=== PATIENT | male | born 1960 | race Caucasian/White ===

== ENCOUNTER → 2017-10-31 16:05 | Outpatient (CLI) | payer OTHER, SELFPAY ==
[2017-10-31 17:32] LABS: Estradiol 29.6 pg/mL
== END ==
PROVIDERS: Family Provider Preventive Medicine Occupational Medicine; PCP Preventive Medicine Occupational Medicine; Visit Provider Specialist
DX: E29.1 Testicular hypofunction (principal)
CPT/HCPCS: 36415; 82670; 84403

== ENCOUNTER → 2018-03-01 11:31 | Outpatient (CLI) | payer OTHER, SELFPAY ==
[2018-03-01 12:02] LABS: Hematocrit 46.3 % (40-54); Hemoglobin 16.3 g/dl (13.0-16.5); Mean Corp Hgb Conc 35.2 g/gl (32-36); Mean Platelet Vol. 10.4 fl (6.2-12.0); Platelet Count 167 K/mm3 (150-450); RBC Distribution Width SD 45.2 fl (35.1-43.9); Red Blood Count 5.26 M/mm3 (4.6-6.2); White Blood Count 6.4 K/mm3 (4.4-11.0)
[2018-03-01 12:04] LABS: Scan Indicated on CBC? Y/N NO
[2018-03-01 15:04] LABS: ALB/GLOB Ratio 1.2 RATIO (0.9-2.4); AST(SGOT) 38 U/L (15-37); Alanine Aminotransfer ALT/SGPT 54 U/L (16-61); Albumin, Serum 4.2 g/dL (3.2-5.0); Alkaline Phosphatase 55 U/L (45-117); Anion Gap 9 (5-15); BUN 16 mg/dL (7-18); BUN/Creat Ratio 13.9 RATIO (10-20); Calcium,Total 8.8 mg/dL (8.5-10.1); Chloride 105 mmol/L (98-107); Cholesterol 143 mg/dL (200); Creatinine, Serum 1.15 mg/dL (0.70-1.30); EST Glomerular Filtration Rate 69 mL/min (>60); Est Glom Filt Rate - Afr Amer 84 mL/min (>60); Globulin 3.6 g/dL (2.2-4.2); Glucose 84 mg/dL (74-106); High Density Lipoprotein 30 mg/dL; Potassium 3.9 mmol/L (3.5-5.1); Protein, Total 7.8 g/dL (6.4-8.2); Sodium Level 141 mmol/L (136-145); Triglycerides 103 mg/dL; Very Low Density Lipoprotein 21 mg/dL (5-40)
== END ==
PROVIDERS: Family Provider Preventive Medicine Occupational Medicine; PCP Preventive Medicine Occupational Medicine; Visit Provider Preventive Medicine Occupational Medicine
DX: Z00.00 Encounter for general adult medical examination without abnormal findings (principal)
CPT/HCPCS: 36415; 80053; 80061; 85027

== ENCOUNTER → 2018-11-22 14:47 | Outpatient (CLI) | payer OTHER, SELFPAY ==
[2016-08-04 11:54] VITALS: BMI 35.6
== END ==
PROVIDERS: Family Provider Preventive Medicine Occupational Medicine; PCP Preventive Medicine Occupational Medicine; Referring Provider Preventive Medicine Occupational Medicine; Visit Provider Preventive Medicine Occupational Medicine
DX: L01.00 Impetigo, unspecified (principal)
CPT/HCPCS: 87070; 87205

== ENCOUNTER → 2019-07-04 12:53 | Outpatient (CLI) | payer OTHER, SELFPAY ==
[2016-08-04 11:54] VITALS: BMI 35.6
[2019-07-04 14:40] LABS: Hemoglobin A1c 5.5 % (4.2-6.3)
[2019-07-04 14:47] LABS: ALB/GLOB Ratio 1.2 RATIO (0.9-2.4); AST(SGOT) 86 U/L (15-37); Alanine Aminotransfer ALT/SGPT 99 U/L (16-61); Albumin, Serum 4.4 g/dL (3.2-5.0); Alkaline Phosphatase 56 U/L (45-117); Anion Gap 5 (5-15); BUN 17 mg/dL (7-18); BUN/Creat Ratio 14.3 RATIO (10-20); Chloride 106 mmol/L (98-107); Cholesterol 189 mg/dL (200); Creatinine, Serum 1.19 mg/dL (0.70-1.30); EST Glomerular Filtration Rate 66 mL/min (>60); Est Glom Filt Rate - Afr Amer 80 mL/min (>60); Globulin 3.6 g/dL (2.2-4.2); Glucose 99 mg/dL (74-106); High Density Lipoprotein 31 mg/dL; PSA,Total - Annual Screen 0.71 ng/mL (0.00-4.00); Sodium Level 139 mmol/L (136-145); Thyroid Stim Hormone (TSH) 2.23 uIU/mL (0.358-3.74); Triglycerides 194 mg/dL; Very Low Density Lipoprotein 39 mg/dL (5-40)
[2019-07-09 14:08] LABS: Testosterone, Free 9.41 ng/dL (5.00-21.00)
[2019-07-09 16:20] LABS: Testosterone, Total 362 ng/dL (264-916)
== END ==
PROVIDERS: Family Provider Preventive Medicine Occupational Medicine; PCP Preventive Medicine Occupational Medicine; Referring Provider Nurse Practitioner Family; Visit Provider Nurse Practitioner Family
DX: R68.82 Decreased libido (principal); Z12.5 Encounter for screening for malignant neoplasm of prostate; R73.9 Hyperglycemia, unspecified; E78.5 Hyperlipidemia, unspecified
CPT/HCPCS: 36415; 80053; 80061; 83036; 84153; 84402; 84403; 84443; G0103

== ENCOUNTER → 2021-07-27 13:56 | Outpatient (CLI) | payer OTHER, SELFPAY ==
--- NOTE | 2021-07-27 13:59 | ECHOD_ITS ---
Reason For Study: ABNL CALCIUM SCORE TEST Procedure This was a 2D Doppler, Color Flow transthoracic echocardiogram. The study was technically difficult. Exam performed in department. Left Ventricle Normal LV size. Left ventricular systolic function is normal. The estimated ejection fraction is 65 %. No evidence for diastolic dysfunction. No regional wall motion abnormalities noted. Right Ventricle Normal RV size. Normal systolic function. Atria The left atrium is mildly enlarged. Normal right atrium. No doppler evidence for ASD. Mitral Valve There is no mitral annular calcification. Normal mitral valve. Trivial mitral valve insufficiency. Tricuspid Valve Normal tricuspid valve. Trivial tricuspid valve insufficiency. Unable to estimate RV systolic pressure/pulmonary artery pressure due to technically difficult study. Aortic Valve Trisinus/trileaflet aortic valve. Mild focal aortic valve calcification. Pulmonic Valve The pulmonic valve is not well visualized. Trivial pulmonic valve insufficiency. Great Vessels Normal sized aortic root. Pericardium/Pleural No pericardial effusion. MMode/2D Measurements & Calculations LVIDd: 4.7 cm IVSd: 1.0 cm Ao root diam: 3.7 cm LVIDs: 3.6 cm LVPWd: 0.95 cm RVDd: 3.6 cm FS: 23.5 % LAV(MOD-bp): 69.1 ml LA A4 area: 21.0 cm2 LA dimension(2D): 4.5 cm LAV(MOD-bp) Indexed: 29.2 ml/m2 LAV(MOD-sp2): 67.0 ml LAV(MOD-sp4): 58.9 ml RA A4 area: 19.8 cm2 Time Measurements MV dec time: 0.22 sec Doppler Measurements & Calculations MV E max jesus: 70.6 cm/sec Lat Peak E' Jesus: 10.6 cm/sec Med Peak E' Jesus: 9.9 cm/sec MV A max jesus: 83.3 cm/sec E/E' lat: 6.7 E/E' med: 7.2 MV E/A: 0.85 Ao V2 max: 160.2 cm/sec LV V1 max: 119.6 cm/sec PA V2 max: 144.9 cm/sec Ao max P.5 mmHg LV V1 max P.7 mmHg ECHO/Echo Complete Interpretation Summary The study was technically difficult. Left ventricular systolic function is normal. The estimated ejection fraction is 65 %. The left atrium is mildly enlarged. Trivial mitral valve insufficiency. Trivial tricuspid valve insufficiency. Mild focal aortic valve calcification. Trivial pulmonic valve insufficiency. Unable to estimate RV systolic pressure/pulmonary artery pressure due to techni treasure difficult study. No evidence for diastolic dysfunction. Ordering Physician: Zurdo Javier Referring Physician: Juan Carlos Cash Performed By: Yasmine Hdz, AVERY, RVT
== END ==
PROVIDERS: PCP Family Medicine; Referring Provider Internal Medicine Cardiovascular Disease; Visit Provider Internal Medicine Cardiovascular Disease
DX: R93.1 Abnormal findings on diagnostic imaging of heart and coronary circulation (principal)
CPT/HCPCS: 93306

== ENCOUNTER → 2022-01-20 | Outpatient (CLI) | payer OTHER, SELFPAY ==
[2022-01-20 10:53] LABS: Syphilis Antibodies Non-reactive
[2022-02-12 10:08] LABS: Lyme IgG P18 Ab Absent (.); Lyme IgG P23 Ab Absent (.); Lyme IgG P28 Ab Absent (.); Lyme IgG P30 Ab Absent (.); Lyme IgG P39 Ab Absent (.); Lyme IgG P41 Ab Absent (.); Lyme IgG P45 Ab Absent (.); Lyme IgG P58 Ab Absent (.); Lyme IgG P66 Ab Absent (.); Lyme IgG P93 Ab Absent (.); Lyme IgM P23 Ab Absent (.); Lyme IgM P39 Ab Absent (.); Lyme IgM P41 Ab Absent (.)
[2022-02-13 22:52] LABS: Lyme IgG WB Interpretation Negative (.); Lyme IgM WB Interpretation Negative (.)
== END | disposition home or self-care (01) ==
LOC: MTLAB 08:56
PROVIDERS: PCP Family Medicine; Referring Provider Dermatology; Visit Provider Dermatology
DX: L30.8 Other specified dermatitis (principal); L21.8 Other seborrheic dermatitis; L57.8 Other skin changes due to chronic exposure to nonionizing radiation; L57.0 Actinic keratosis; Z41.9 Encounter for procedure for purposes other than remedying health state, unspecified; X32.XXXA Exposure to sunlight, initial encounter
CPT/HCPCS: 36415; 86617; 86780

== ENCOUNTER 2023-12-07 00:03 | Inpatient (IN) | payer OTHER, SELFPAY ==
[2023-12-07] VITALS (41 sets, daily range): BP systolic 128–206; BP diastolic 47–116; PULSE 68–103; RESP 9–20; TEMP 36.3–36.8; O2SAT 93–99; BMI 35.3; BMI 34.2
--- NOTE | 2023-12-07 00:33 | RAD_ITS ---
INDICATION: chest pain EXAMINATION/TECHNIQUE: X-RAY - XR Chest 2 Views COMPARISON: None. FINDINGS: LINES/DEVICES: None. LUNGS: No pulmonary edema or focal airspace consolidation. No sizable pleural effusion. No pneumothorax detected. MEDIASTINUM AND CARDIOVASCULAR STRUCTURES: Heart size within normal limits. Mediastinal contours unremarkable. BONES AND SOFT TISSUES: No acute findings. RAD/Chest PA and Lateral IMPRESSION: No radiographic evidence of acute cardiopulmonary disease. Electronically Signed: Oli Washburn MD at 1:55 EDT ,
--- NOTE | 2023-12-07 00:33 | EKG12_ITS ---
Test Reason : CP Blood Pressure : / mmHG Vent. Rate : 099 BPM Atrial Rate : 099 BPM P-R Int : 158 ms QRS Dur : 086 ms QT Int : 364 ms P-R-T Axes : 065 026 057 degrees QTc Int : 467 ms Normal sinus rhythm ST & T wave abnormality, consider anterior ischemia Prolonged QT Abnormal ECG Confirmed by EMILIANO ESTRADA, DIONNA ([id number]), managing editor ARMEN STYLES ([id number]) on 12/08/2023 10:12:22 AM Referred By: GABRIELLE Confirmed By:DIONNA CUMMINGS MD
[2023-12-07 00:49] LABS: Absolute Lymphocyte Count 2.43 X10^3/uL (0.83-4.51); Absolute Neutrophil Count 4.3 X10^3/uL (2.0-7.7); Basophil# 0.04 X10^3/uL; Basophil% 0.5 % (0-1); Eosinophil# 0.23 X10^3/uL; Hematocrit 45.2 % (40-54); Hemoglobin 14.9 g/dL (13.0-16.5); Lymphocyte # 2.43 X10^3/ul (0.83-4.51); Lymphocyte % 31.8 % (19-41); Mean Corpuscular Hgb 30.1 pg (27.0-32.0); Mean Corpuscular Volume 91.3 fL (80-94); Mean Platelet Vol. 10.8 fl (6.2-12.0); Monocyte# 0.65 X10^3/uL; Monocyte% 8.5 % (0-10); NRBC Flagged by Analyzer 0 % (0-5); Neutrophil # 4.25 X10^3/uL (2.7-7.7); Neutrophil % 55.8 % (47-70); Platelet Count 156 K/mm3 (150-450); RBC Distribution Width CV 13.8 % (11.6-14.6); RBC Distribution Width SD 46.3 fl (35.1-43.9); Red Blood Count 4.95 M/mm3 (4.6-6.2); White Blood Count 7.6 K/mm3 (4.4-11.0)
[2023-12-07 01:01] LABS: D-Dimer Quantitative (DVT/PE) 0.32 FEU/ug/m (0.27-0.49)
[2023-12-07] MEDS: Nitroglycerin SL (ED/IMG/CATH) 0.4 MG TABLET SL ×2 (01:02→01:07)
[2023-12-07 01:10] LABS: Anion Gap 7 (5-15); BUN 20 mg/dL (7-18); BUN/Creat Ratio 17.1 RATIO (10-20); Calcium,Total 9.3 mg/dL (8.5-10.1); Chloride 106 mmol/L (98-107); Creatinine, Serum 1.17 mg/dL (0.70-1.30); EST Glomerular Filtration Rate 67 mL/min (>60); Est Glom Filt Rate - Afr Amer 81 mL/min (>60); Estimated Creatinine Clearance 82.19 ml/min; Glucose 122 mg/dL (74-106); Magnesium 2.2 mg/dL (1.6-2.6); Potassium 3.6 mmol/L (3.5-5.1); Sodium Level 140 mmol/L (136-145); Troponin-I HS 55 pg/mL (3.0-78.0)
[2023-12-07] MEDS: Acetaminophen 325 MG Tablet 1000 MG PO (01:29)
[2023-12-07] MEDS: Metoprolol Tartrate 25 MG Tablet 50 MG PO (01:48)
[2023-12-07 03:23] LABS: Troponin-I HS 434 pg/mL (3.0-78.0)
[2023-12-07 04:02] LABS: Partial Thromboplast Time 28.7 Seconds (24.1-36.2); Prothrombin Time (Protime)PT. 13.5 SECONDS (11.7-14.9)
--- NOTE | 2023-12-07 04:13 | PCM.HP.STD ---
HPI - General General Date of Admission: 12/07/23 Date of Service: 12/07/23 Chief Complaint: Chest Pain HPI Narrative AMBER IRELAND, is a 63 M with a past medical history of previous tobacco abuse, obesity; with BMI of 35.3 this admission, erectile dysfunction, history of colectomy, GERD, carpal tunnel syndrome and osteoarthritis; with history of bilateral THR's who presents to [facility] ER who started-exam as stated. Mr. Ireland reports his symptoms began approximately two hours prior to arrival with the abrupt-onset of chest pain that began while he was getting ready for bed. He describes the chest pain as substernal, pressure-like, moderate and radiating into his Left palm with nothing seeming to make the pain better or worse so he finally decided to come in for further evaluation and treatment. 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 In the ER he was noted to have an elevated second troponin of 434 pg/mL consistent with non-ST elevation CA complicated by uncontrolled hypertension with blood pressure 195/112 mmHg present on admission and he was then admitted to the PCU for ongoing care for stay that is expected to be greater than 2 midnights. [facility] Medical History Abnormal cardiac CT angiography Carpal tunnel syndrome GERD (gastroesophageal reflux disease) Home Medications krill 1,000 mg-omega-3 230 mg-dha 60 iv-ykk-qtbfuzyns-astaxan capsule (MegaRed [place]-3 Krill Oil) 1 cap PO DAILY 07/15/21 [History Last Taken Unknown] omeprazole 40 mg capsule,delayed release 40 mg PO DAILY 07/15/21 [History Last Taken Unknown] tadalafil 5 mg tablet (Cialis) 5 mg PO DAILY PRN sexual activity 07/15/21 [History Last Taken Unknown] cholecalciferol (vitamin D3) 125 mcg (5,000 unit) capsule 125 mcg PO DAILY 07/17/21 [History Last Taken Unknown] magnesium oxide 500 mg PO DAILY 07/17/21 [History Last Taken Unknown] vitamin B complex 1 cap PO DAILY 07/17/21 [History Last Taken Unknown] vitamin K2 100 mcg capsule 100 mcg PO DAILY 07/17/21 [History Last Taken Unknown] Allergy/AdvReac Type Severity Reaction Status Date / Time No Known Allergies Allergy Verified 07/17/21 15:52 Family History Father Cerebral hemorrhage Brother CAD (coronary artery disease) History of coronary artery bypass surgery Brother Diabetes Brother Factor 5 Leiden mutation, heterozygous Brother Myocardial infarction CAD (coronary artery disease) History of coronary artery bypass surgery Brother Lymphoma Surgical History History of colectomy History of hip replacement History of tonsillectomy and adenoidectomy Social History Smoking Status: Former smoker alcohol intake: current substance use type: does not use caffeine: Yes Type: coffee Number of servings: 3 ROS ROS Narrative Review of systems: General: Patient denies fever or chills. HENT: Denies headache, denies stuffy nose, denies sore throat EYES: Denies changes in vision or discharge from eyes. Resp: Denies cough, denies shortness of breath Cardiac: Patient admits to chest pain that was pressure-like, moderate and radiating into his left palm as per HPI. He denies palpitations or heart racing. GI: Denies abdominal pain, denies changes in bowel, denies nausea or vomiting. : Denies changes in urination Extremity: Denies swelling Musculoskeletal: Feels somewhat generally weak and unwell but he denies arthralgias or myalgias. Neuro: Patient denies headache, paresthesias or focal neurologic deficits. Heme: Denies any bleeding or bruising Skin: Denies rashes Psychiatric: No complaints voiced related to uncontrolled depression or anxiety. Endocrine: No polyuria, polydipsia or polyphagia. The rest of the 14 point ROS was negative except for positives in HPI. Vital Signs Vital Signs Vital Signs: 12/07/23 00:04 12/07/23 00:08 12/07/23 01:02 Temperature 98.1 F Temperature Source Oral Pulse Rate 97 86 Respiratory Rate 12 Blood Pressure 195/112 H 195/112 H 201/109 H Blood Pressure Mean 139 139 Pulse Ox 98 Oxygen Delivery Method Room Air 12/07/23 01:04 12/07/23 01:07 12/07/23 01:09 Temperature Temperature Source Pulse Rate 97 103 H 97 Respiratory Rate 18 13 Blood Pressure 201/109 H 178/114 H 165/102 H Blood Pressure Mean 139 123 Pulse Ox 95 96 Oxygen Delivery Method Room Air Room Air 12/07/23 01:49 12/07/23 02:15 12/07/23 00:30 Temperature Temperature Source Pulse Rate 86 69 96 Respiratory Rate 15 14 10 L Blood Pressure 158/102 H 159/47 H 206/111 H Blood Pressure Mean 120 84 138 Pulse Ox 97 97 97 Oxygen Delivery Method Room Air Room Air 12/07/23 00:34 12/07/23 00:45 12/07/23 01:01 Temperature Temperature Source Pulse Rate 97 88 103 H Respiratory Rate 13 12 20 H Blood Pressure 192/110 H 185/108 H 201/109 H Blood Pressure Mean 136 132 136 Pulse Ox 96 96 Oxygen Delivery Method 12/07/23 01:06 12/07/23 01:09 12/07/23 01:13 Temperature Temperature Source Pulse Rate 86 96 93 Respiratory Rate 11 L 10 L 12 Blood Pressure 178/114 H 160/102 H 139/93 H Blood Pressure Mean 134 120 108 Pulse Ox 95 94 94 Oxygen Delivery Method 12/07/23 01:15 12/07/23 01:30 12/07/23 01:45 Temperature Temperature Source Pulse Rate 83 79 73 Respiratory Rate 13 12 12 Blood Pressure 128/93 H 168/97 H 158/102 H Blood Pressure Mean 104 116 120 Pulse Ox 95 95 96 Oxygen Delivery Method 12/07/23 02:00 12/07/23 02:15 12/07/23 02:30 Temperature Temperature Source Pulse Rate 72 71 69 Respiratory Rate 13 15 11 L Blood Pressure 165/101 H 159/97 H 155/97 H Blood Pressure Mean 120 117 115 Pulse Ox 97 96 98 Oxygen Delivery Method 12/07/23 02:45 12/07/23 03:00 12/07/23 03:15 Temperature Temperature Source Pulse Rate 74 77 Respiratory Rate 16 13 Blood Pressure 160/116 H 157/97 H 154/102 H Blood Pressure Mean 129 115 118 Pulse Ox 93 94 Oxygen Delivery Method Weight Weight: 253 lb 1.451 oz Body Mass Index (BMI) 35.3 Physical Exam Const alert, oriented x3, no apparent distress, average body habitus and healthy appearing General Appearance: cooperative HEENT normocephalic, head/scalp atraumatic, hearing grossly normal bilaterally and moist oral mucous membranes Eyes PERRL and EOMs intact bilaterally Neck no lymphadenopathy and supple Resp normal respiratory effort, no retractions, no use of accessory muscles and clear to auscultation bilaterally Cardio regular rate and regular rhythm GI normal to inspection, nondistended, normoactive bowel sounds, soft to palpation, non-tender and non-distended Extremity normal to inspection and full ROM Skin Skin Narrative: Patient has no evidence of rash, jaundice or abscess. Neuro oriented x3, CN's II-XII intact bilaterally, moves all extremities and no focal motor deficits Sensorium / Orientation: awake, alert, oriented to person, oriented to place and oriented to time Speech: speech normal Motor Exam: strength 5/5 throughout Psych affect normal Results Medical Records Data Attestation: I reviewed the patient's medical records Lab / Micro Data Attestation: I reviewed the patient's lab results. 12/07/23 00:15 12/07/23 00:15 Labs: Laboratory Results - last 24 hr 12/07/23 00:15: WBC 7.6, RBC 4.95, Hgb 14.9, Hct 45.2, MCV 91.3, MCH 30.1, MCHC 33.0, RDW Std Deviation 46.3 H, RDW Coeff of Lacey 13.8, Plt Count 156, MPV 10.8, Immature Gran % (Auto) 0.400, Neut % (Auto) 55.8, Lymph % (Auto) 31.8, Mitchell % (Auto) 8.5, Eos % (Auto) 3.0, Baso % (Auto) 0.5, Absolute Neuts (auto) 4.3, Absolute Lymphs (auto) 2.43, Nucleated RBC % 0, D-Dimer Quant (PE/DVT) 0.32, Sodium 140, Potassium 3.6, Chloride 106, Carbon Dioxide 27.0, Anion Gap 7, BUN 20 H, Creatinine 1.17, Estim Creat Clear Calc 82.19, Est GFR (MDRD) Af Amer 81, Est GFR (MDRD) Non-Af 67, BUN/Creatinine Ratio 17.1, Glucose 122 H, Calcium 9.3, Magnesium 2.2, Troponin I High Sens 55 12/07/23 02:14: Troponin I High Sens 434 H* 12/07/23 03:42: PT 13.5, INR 1.0, APTT 28.7 Imaging Radiology Impression Chest X-Ray 12/07/23 00:33 IMPRESSION: No radiographic evidence of acute cardiopulmonary disease. Electronically Signed: Oli Washburn MD at 1:55 EDT , Assessment & Plan Assessment/Plan (1) Non-ST elevated myocardial infarction (non-STEMI): (2) Uncontrolled hypertension: (3) History of tobacco abuse: (4) Obesity (BMI 30-39.9): PLAN: Plan 1. Non-ST elevation CA; evidenced by elevated second troponin of 434 pg/mL in the setting of unrelenting chest pain and shortness of breath - Admit to PCU. Continue IV heparin, aspirin, metoprolol and statin began in the ER plus add Plavix. Serialize troponin. Check echocardiogram to evaluate LVEF. Check lipid profile. Keep n.p.o. except sips, ice chips and medications. Finally, we will consult [facility] asbestos textile supervisor to see this patient on rounds in the a.m. for further recommendations regarding left heart cath this admission with no appreciated advance. 2. Uncontrolled hypertension with blood pressure 195/112 mmHg present on admission complicating #1 - Continue metoprolol begun in the ER and add IV hydralazine for systolic blood pressure greater than 160 mmHg. 3. Previous tobacco abuse - Noted. 4. Obesity; with BMI of 35.3 this admission - Weight loss will be recommended. 5. Erectile dysfunction - Hold tadalafil. Cardiology to decide if this agent is still appropriate for this patient. 6. History of colectomy - Noted. 7. GERD - Resume PPI. 8. Carpal tunnel syndrome - Noted. 9. Osteoarthritis; with history of bilateral THR's - Give Tylenol as needed [id number] (level 1-5 out of 10) pain or fever. 10. DVT prophylaxis - Patient already on IV heparin for #1. Total time: Approximately 55 minutes. Charges/Coding Visit Charges Inpatient E&M: 88492 Init Hosp L2
--- NOTE | 2023-12-07 04:17 | EDS_ITS ---
HPI History of Present Illness Chief Complaint: Chest Pain Informant: patient and spouse/S.O. Narrative Narrative: Patient is a 63-year-old male with past medical history of GERD as well as erectile dysfunction. He states that this evening he was getting ready and laying down for bed when he developed midsternal chest discomfort described as a pressure. He states there was mild shortness of breath associated with this but he denies any nausea/vomiting or diaphoresis. He states he felt a abnormal or tingling sensation in his left arm but states the pain did not radiate. He denies any history of hypertension but states because of the pain he checked his blood pressure and it was elevated. He denies any illicit drug use or excessive stimulant use and with concern this could be cardiac in nature comes in for evaluation. [facility] Medical History Abnormal cardiac CT angiography Carpal tunnel syndrome GERD (gastroesophageal reflux disease) Home Medications krill 1,000 mg-omega-3 230 mg-dha 60 kk-hwu-mjpnscvmb-astaxan capsule (MegaRed [place]-3 Krill Oil) 1 cap PO DAILY 07/15/21 [History Last Taken Unknown] omeprazole 40 mg capsule,delayed release 40 mg PO DAILY 07/15/21 [History Last Taken Unknown] tadalafil 5 mg tablet (Cialis) 5 mg PO DAILY PRN sexual activity 07/15/21 [History Last Taken Unknown] cholecalciferol (vitamin D3) 125 mcg (5,000 unit) capsule 125 mcg PO DAILY 07/17/21 [History Last Taken Unknown] magnesium oxide 500 mg PO DAILY 07/17/21 [History Last Taken Unknown] vitamin B complex 1 cap PO DAILY 07/17/21 [History Last Taken Unknown] vitamin K2 100 mcg capsule 100 mcg PO DAILY 07/17/21 [History Last Taken Unknown] Allergy/AdvReac Type Severity Reaction Status Date / Time No Known Allergies Allergy Verified 07/17/21 15:52 Family History Father Cerebral hemorrhage Brother CAD (coronary artery disease) History of coronary artery bypass surgery Brother Diabetes Brother Factor 5 Leiden mutation, heterozygous Brother Myocardial infarction CAD (coronary artery disease) History of coronary artery bypass surgery Brother Lymphoma Surgical History History of colectomy History of hip replacement History of tonsillectomy and adenoidectomy Social History Smoking Status: Former smoker alcohol intake: current substance use type: does not use caffeine: Yes Type: coffee Number of servings: 3 ROS ROS ED Constitutional Constitutional ED: Denies chills or fever(s) Eyes Eyes: Denies change in vision ENT ENT ED: Denies sore throat Cardiovascular Cardiovascular: Reports chest pain; Denies palpitations or racing heartbeat Respiratory/Chest Respiratory/Chest: Reports dyspnea; Denies cough Gastrointestinal Gastrointestinal: Denies abdominal pain, diarrhea, nausea or vomiting Genitourinary Genitourinary ED: Denies dysuria Musculoskeletal Musculoskeletal: Denies myalgias Integumentary Denies rash Neurologic Neurologic: Reports paresthesias; Denies headache(s) Hematologic/Lymphatic Hematologic/Lymphatic: Denies easy bleeding or easy bruising EXAM Physical Exam Const Vital Signs: 12/07/23 00:04 12/07/23 00:08 12/07/23 01:02 Temperature 98.1 F Temperature Source Oral Pulse Rate 97 86 Respiratory Rate 12 Blood Pressure 195/112 H 195/112 H 201/109 H Blood Pressure Mean 139 139 Pulse Ox 98 Oxygen Delivery Method Room Air 12/07/23 01:04 12/07/23 01:07 12/07/23 01:09 Temperature Temperature Source Pulse Rate 97 103 H 97 Respiratory Rate 18 13 Blood Pressure 201/109 H 178/114 H 165/102 H Blood Pressure Mean 139 123 Pulse Ox 95 96 Oxygen Delivery Method Room Air Room Air 12/07/23 01:49 12/07/23 02:15 12/07/23 00:30 Temperature Temperature Source Pulse Rate 86 69 96 Respiratory Rate 15 14 10 L Blood Pressure 158/102 H 159/47 H 206/111 H Blood Pressure Mean 120 84 138 Pulse Ox 97 97 97 Oxygen Delivery Method Room Air Room Air 12/07/23 00:34 12/07/23 00:45 12/07/23 01:01 Temperature Temperature Source Pulse Rate 97 88 103 H Respiratory Rate 13 12 20 H Blood Pressure 192/110 H 185/108 H 201/109 H Blood Pressure Mean 136 132 136 Pulse Ox 96 96 Oxygen Delivery Method 12/07/23 01:06 12/07/23 01:09 12/07/23 01:13 Temperature Temperature Source Pulse Rate 86 96 93 Respiratory Rate 11 L 10 L 12 Blood Pressure 178/114 H 160/102 H 139/93 H Blood Pressure Mean 134 120 108 Pulse Ox 95 94 94 Oxygen Delivery Method 12/07/23 01:15 12/07/23 01:30 12/07/23 01:45 Temperature Temperature Source Pulse Rate 83 79 73 Respiratory Rate 13 12 12 Blood Pressure 128/93 H 168/97 H 158/102 H Blood Pressure Mean 104 116 120 Pulse Ox 95 95 96 Oxygen Delivery Method 12/07/23 02:00 12/07/23 02:15 12/07/23 02:30 Temperature Temperature Source Pulse Rate 72 71 69 Respiratory Rate 13 15 11 L Blood Pressure 165/101 H 159/97 H 155/97 H Blood Pressure Mean 120 117 115 Pulse Ox 97 96 98 Oxygen Delivery Method 12/07/23 02:45 12/07/23 03:00 12/07/23 03:15 Temperature Temperature Source Pulse Rate 74 77 Respiratory Rate 16 13 Blood Pressure 160/116 H 157/97 H 154/102 H Blood Pressure Mean 129 115 118 Pulse Ox 93 94 Oxygen Delivery Method 12/07/23 03:30 12/07/23 03:40 12/07/23 03:45 Temperature Temperature Source Pulse Rate 80 91 86 Respiratory Rate 9 L 11 L 12 Blood Pressure 194/108 H 169/104 H 172/103 H Blood Pressure Mean 132 121 123 Pulse Ox 96 97 97 Oxygen Delivery Method 12/07/23 04:00 12/07/23 04:15 12/07/23 04:30 Temperature Temperature Source Pulse Rate 77 77 84 Respiratory Rate 12 12 15 Blood Pressure 165/110 H 163/109 H Blood Pressure Mean 127 127 Pulse Ox 98 96 97 Oxygen Delivery Method Positive well nourished and well developed General Appearance ED: well developed; Negative for pallor HEENT Reports moist mucous membranes HEENT Narrative: No tongue or lip swelling no oral lesions no airway edema or compromise No secondary findings in the posterior pharynx to suggest infection Eyes PERRL and EOMs intact bilaterally General Eye ED: Negative for scleral icterus Neck supple and no JVD Neck Narrative: No nuchal rigidity or meningeal signs noted Chest Wall palpation of chest normal Chest Narrative: No bony deformity or crepitance of the chest wall. No pain with palpation Resp normal respiratory effort and clear to auscultation bilaterally Resp Narrative: No nasal flaring retractions tachypnea or accessory muscle use Cardio regular rate and regular rhythm Rate: other Other Details: Heart is regular rate and rhythm Radial and carotid pulses are equal and symmetric GI normal to inspection, nondistended, normoactive bowel sounds, non-tender, non- distended and no masses GI Narrative: No voluntary guarding or rigidity No pulsatile mass or fluid wave Auscultation: normoactive bowel sounds Palpation: soft Extremity normal to inspection Extremity Narrative: No asymmetric edema no pitting edema negative Homans' sign bilaterally Neuro oriented x3, CN's II-XII intact bilaterally and no sensory deficits noted Sensorium / Orientation: alert Motor Exam: strength 5/5 throughout Psych mental status grossly normal Skin no rashes or lesions noted, no wounds and skin turgor normal General Skin Exam: Negative for jaundice or pallor MDM MDM MDM Narrative Medical decision making narrative: Patient arrived to the ER hypertensive otherwise with stable vitals. Patient denies any history of hypertension and states his blood pressure is typically 120-130/80. He denied any excessive stimulant use or illicit drug use and he also reported that with the elevated blood pressure he had midsternal chest discomfort. Differential diagnosis is for hypertensive urgency versus acute coronary syndrome versus pneumonia versus pneumothorax versus DVT/PE versus dissection. EKG was obtained which showed ST segment depression mainly in leads V2 and V3 without reciprocal changes going against STEMI but concerning for ischemia. As patient reported that his blood pressure is typically normal and now it is drastically elevated and he is having discomfort this could also be hypertensive emergency leading to vessel spasm and decreased blood flow. Patient was given sublingual nitro and had improvement of his blood pressure and with so he also reported that his pain went from a value of an 8 down to a 1 or 2. Chest x-ray revealed no widening of the mediastinum or lung pathology and blood pressure in both arms were normal. Moreover D-dimer is negative going against DVT/PE or dissection. As the patient's blood pressure began to creep back up as the nitro began to wear off he reported mild worsening of his chest discomfort once again. Initial troponin was normal at 55 but 2-hour delta drastically increased to a value of 434. I discussed the case with cardiology on-call and they recommend starting heparin drip but as his blood pressure has been reduced by approximately 25% from his initial vital signs I do not recommend starting any type of nitro drip at this time. Medicine was contacted and they do agree to accept the patient for continued care. Plan of care was discussed with patient and family and they are agreeable to it and therefore will be admitted to the hospital for further evaluation of his NSTEMI and hypertension History & Record Review Discussion w/independent historian: Patient and Significant other Lab Data Attestation: I reviewed the patient's lab results. Labs: Laboratory Results - last 24 hr 12/07/23 12/07/23 12/07/23 00:15 02:14 03:42 WBC 7.6 RBC 4.95 Hgb 14.9 Hct 45.2 MCV 91.3 MCH 30.1 MCHC 33.0 RDW Std Deviation 46.3 H RDW Coeff of Lacey 13.8 Plt Count 156 MPV 10.8 Immature Gran % (Auto) 0.400 Neut % (Auto) 55.8 Lymph % (Auto) 31.8 [place] % (Auto) 8.5 Eos % (Auto) 3.0 Baso % (Auto) 0.5 Absolute Neuts (auto) 4.3 Absolute Lymphs (auto) 2.43 Nucleated RBC % 0 PT 13.5 INR 1.0 APTT 28.7 D-Dimer Quant (PE/DVT) 0.32 Sodium 140 Potassium 3.6 Chloride 106 Carbon Dioxide 27.0 Anion Gap 7 BUN 20 H Creatinine 1.17 Estim Creat Clear Calc 82.19 Est GFR (MDRD) Af Amer 81 Est GFR (MDRD) Non-Af 67 BUN/Creatinine Ratio 17.1 Glucose 122 H Calcium 9.3 Phosphorus 3.2 Magnesium 2.2 Troponin I High Sens 55 434 H* Radiography Diagnostic Testing: Clinical Impression(s) from Imaging Studies Chest X-Ray 12/07/23 00:33 IMPRESSION: No radiographic evidence of acute cardiopulmonary disease. Electronically Signed: Oli Washburn MD at 1:55 EDT , Chest x-ray as interpreted by the emergency medicine physician reveals no acute infiltrate pneumothorax pleural effusion or widening of the mediastinum Management Discussion w/another healthcare provider: Hospitalist and Dog License Officer Supervisor Critical Care Time Critical Care Time: Yes Critical care time (excluding procedures): Discussing w/Patient &/or Family/Steam Fitter Supervisor Maintenance, Discussing w/Consultants and - (Critical care time of 31 minutes) Discharge Plan Dx/Rx/DC Orders Clinical Impression: Non-ST elevated myocardial infarction (non-STEMI), Hypertension Disposition Disposition: Acute Care Hospital [facility] Discharge Date/Time: 12/07/23 05:21
[2023-12-07] MEDS: Heparin Injection (Vial) 5,000 UNIT/ML VIAL 4000 UNIT IV (04:28)
[2023-12-07] MEDS: HEPARIN/D5w 25,000 UNITS 25,000 UNITS/250 ML IV.SOLN. 10 UNITS CONT INF (05:03)
--- NOTE | 2023-12-07 05:24 | ECHOD_ITS ---
Reason For Study: s/p IN Procedure This was a 2D Doppler, Color Flow transthoracic echocardiogram. Exam performed portable in patient room. Left Ventricle Normal LV size. Left ventricular systolic function is normal. The estimated ejection fraction is 55 %. No regional wall motion abnormalities noted. Right Ventricle Normal RV size. Normal systolic function. Atria Normal left atrium. Normal right atrium. Mitral Valve Normal mitral valve. Tricuspid Valve Normal tricuspid valve. Mild (1+) tricuspid valve insufficiency. Pulmonary artery systolic pressure is 28 mmHg. Aortic Valve Normal aortic valve. Trisinus/trileaflet aortic valve. Pulmonic Valve Normal pulmonic valve. Great Vessels Normal aortic root. The pulmonary artery is normal size. Normal inferior vena cava. Pericardium/Pleural No pericardial effusion. MMode/2D Measurements & Calculations LVIDd: 5.1 cm IVSd: 1.0 cm Ao root diam: 3.3 cm LVIDs: 3.0 cm LVPWd: 0.90 cm LA dimension: 4.3 cm RVDd: 3.8 cm FS: 40.6 % LAV(MOD-bp): 51.9 ml LA A4 area: 18.5 cm2 RA A4 area: 18.0 cm2 LAV(MOD-bp) Indexed: 22.6 ml/m2 LAV(MOD-sp2): 48.0 ml LAV(MOD-sp4): 48.5 ml TAPSE: 2.0 cm Time Measurements MV dec time: 0.20 sec Doppler Measurements & Calculations MV E max jesus: 57.9 cm/sec Lat Peak E' Jesus: 8.2 cm/sec Med Peak E' Jesus: 10.3 cm/sec MV A max jesus: 69.3 cm/sec E/E' lat: 7.1 E/E' med: 5.6 MV E/A: 0.83 MV V2 max: 93.9 cm/sec MV P1/2t max jesus: 78.6 cm/sec Ao V2 max: 110.1 cm/sec MV max P.5 mmHg MV P1/2t: 76.8 msec Ao max P.9 mmHg MV V2 mean: 52.8 cm/sec Ao V2 mean: 76.3 cm/sec MV mean P.3 mmHg MV dec slope: 299.7 cm/sec2 Ao mean P.7 mmHg MV V2 VTI: 23.2 cm MVA(P1/2t): 2.9 cm2 Ao V2 VTI: 24.2 cm AV (velocity ratio): 0.80 LV V1 max: 90.5 cm/sec MR max jesus: 511.9 cm/sec PA V2 max: 101.8 cm/sec LV V1 max P.3 mmHg MR max P.8 mmHg LV V1 mean P.8 mmHg LV V1 mean: 62.8 cm/sec LV V1 VTI: 19.4 cm TR max jesus: 244.9 cm/sec TR max P.0 mmHg ECHO/Echo Complete Interpretation Summary Normal LV size. Left ventricular systolic function is normal. The estimated ejection fraction is 55 %. Structurally normal valves. Ordering Physician: Dariusz Butler Performed By: Tonio Lynn RCS
[2023-12-07 05:35] LABS: Phosphorus 3.2 mg/dL (2.5-4.9)
[2023-12-07] MEDS: Atorvastatin Calcium 80 MG Tablet PO ×2 (06:10→21:42)
[2023-12-07] MEDS: Aspirin E.C. 81 MG Tablet PO (06:10)
[2023-12-07] MEDS: Clopidogrel Bisulfate 75 MG Tablet PO (06:16)
[2023-12-07] MEDS: Metoprolol Tartrate 50 MG Tablet PO (06:17)
[2023-12-07 07:37] LABS: Cholesterol 148 mg/dL (200); High Density Lipoprotein 34 mg/dL; Thyroid Stim Hormone (TSH) 2.67 uIU/mL (0.358-3.74); Triglycerides 107 mg/dL; Troponin-I HS 5148 pg/mL (3.0-78.0); Very Low Density Lipoprotein 21 mg/dL (5-40)
--- NOTE | 2023-12-07 09:02 | CASEMGMT ---
Insurance review for hospitals In-network with [facility] Choice insurance if transfer is recommended is as follows:?[facility], [place], [facility], [facility], [facility], [facility], [facility] ([facility]), [facility], [place], [place], and . Katy Bragg, Discharge Planning Asst.
--- NOTE | 2023-12-07 10:50 | CASEMGMT ---
RN?CM?RN MDS?CM?to room to meet with patient for initial transition planning/care coordination?assessment.?RN?CM?introduced self and role at [facility].? Pt voices understanding and consents to?assessment?at this time.? Pt resting in bed in no distress at this time.? , [place], @ bedside. Pt is A/O at this time and answers all questions appropriately.?? Care providers, pharmacy, and demographics verified/updated at this time. PCP: Dr Juan Carlos Cash currently. Pt plans to switch to his 's PCP ([facility]) in about 6 weeks when his insurance changes. He declines wanting list of other PCP's. Specialists: Pt plans to f/u with Dr Kumar/.cardiology after discharge. Preferred Pharmacy: [facility] retail @ discharge. [facility]. Insurance: [facility] Prescription Benefit:?yes Living Will/HPOA:? Pt does not currently have LW/HCPOA and would like to complete. Swapna LEBRON, made aware. Pt and made aware if SW unable to meet w/him while @ [facility], that he can schedule appt w/SW and complete AD as an OP. LNOK: , Orquidea. 3 daughters. Living Arrangements: Lives w/. Independent. Transportation:?Pt states drives self and states no transportation concerns at this time.? also drives. DME: ? Denies using any DME HHC/SNF: No hx of either. No needs identified. Pt wishes to return home and states has no concerns with going home at time of discharge.???CM?to follow for any discharge planning/needs.? Pt and voice no further concerns/needs at this time.? PLAN:??Home Mauricio PULIDON?RN?CM
[2023-12-07] MEDS: Pantoprazole Sodium 40 MG Tablet PO (11:05)
[2023-12-07] MEDS: Cholecalciferol (Vit D3) 125 MCG CAPSULE (5,000 UNITS) PO (11:05)
[2023-12-07] MEDS: Losartan Potassium 50 MG Tablet PO ×2 (11:05→21:42)
[2023-12-07] MEDS: Magnesium Chloride 64 MG Delay Rel.Tablet 128 MG PO (11:05)
[2023-12-07] MEDS: Vitamin B Comp W-C Capsule 1 CAP PO (11:05)
--- NOTE | 2023-12-07 11:07 | CON.PCM.CA_ITS ---
Assessment & Plan Assessment/Plan (1) Non-ST elevated myocardial infarction (non-STEMI): PLAN: He presented with a non-ST elevation myocardial infarction and elevated high blood pressure. He was evaluated and underwent a cardiac catheterization today which demonstrated triple-vessel disease as reported in the formal report. They do not appear to be any particular lesions which may be amenable to clinically beneficial PCI. His culprit lesion was likely the occlusion of the obtuse marginal branch of the circumflex artery. * Recommendation will be as follows: Aspirin, High intensity statin. Beta-tiffany. Will recommend obtaining a stress test in approximately 3 months and if there is any ischemia in the LAD distribution then targeted PCI to this vessel will be undertaken. (2) Uncontrolled hypertension: PLAN: His blood pressure is not very well-controlled I would recommend that he be on the beta-tiffany with metoprolol 50 mg twice daily Consider adding amlodipine 5 mg a day. Thank you for allowing me to participate in the care of your patient. Please don't hesitate to call if any issues arise. HPI Consult Data Date of Consult: 12/07/23 HPI Narrative HPI Narrative: AMBER SOTO, is a 63 M who presents to the emergency room with chest discomfo rt described as a heaviness. He says that this was abrupt onset and it happened while he was getting ready for bed. It is substernal pressure-like radiating to his left arm. There was no associated nausea or diaphoresis. He does have a strong family history of coronary disease. He has not any known hypertensive though when he presented his blood pressure was noted to be markedly elevated. He does not know his cholesterol status. He has in the past not had any neck arm or jaw discomfort suggest angina. In the emergency room he was noted to be in sinus rhythm with a right bundle branch block. His cardiac troponin enzymes were elevated and cardiology was called for further evaluation and management. [facility] Medical History Abnormal cardiac CT angiography Carpal tunnel syndrome GERD (gastroesophageal reflux disease) Home Medications krill 1,000 mg-omega-3 230 mg-dha 60 ms-rfb-enrxkczpn-astaxan capsule (MegaRed Deadwood-3 Krill Oil) 1 cap PO DAILY 07/15/21 [History Last Taken Unknown] omeprazole 40 mg capsule,delayed release 40 mg PO DAILY 07/15/21 [History Last Taken Unknown] tadalafil 5 mg tablet (Cialis) 5 mg PO DAILY PRN sexual activity 07/15/21 [History Last Taken Unknown] cholecalciferol (vitamin D3) 125 mcg (5,000 unit) capsule 125 mcg PO DAILY 07/17/21 [History Last Taken Unknown] magnesium oxide 500 mg PO DAILY 07/17/21 [History Last Taken Unknown] vitamin B complex 1 cap PO DAILY 07/17/21 [History Last Taken Unknown] vitamin K2 100 mcg capsule 100 mcg PO DAILY 07/17/21 [History Last Taken Unknown] Allergy/AdvReac Type Severity Reaction Status Date / Time No Known Allergies Allergy Verified 07/17/21 15:52 Family History Father Cerebral hemorrhage Brother CAD (coronary artery disease) History of coronary artery bypass surgery Brother Diabetes Brother Factor 5 Leiden mutation, heterozygous Brother Myocardial infarction CAD (coronary artery disease) History of coronary artery bypass surgery Brother Lymphoma Surgical History History of colectomy History of hip replacement History of tonsillectomy and adenoidectomy Social History Smoking Status: Former smoker alcohol intake: current substance use type: does not use caffeine: Yes Type: coffee Number of servings: 3 ROS Constitutional Constitutional: Denies fever(s) or weight loss Eyes Eyes: Reports systems reviewed and no addt'l complaints, except as documented ENT HEENT: Reports systems reviewed and no addt'l complaints, except as documented Cardiovascular Cardiovascular: Reports chest pain at rest; Denies chest pain with activity, dyspnea at rest, dyspnea on exertion, edema, palpitations or paroxysmal nocturna l dyspnea Respiratory/Chest Respiratory/Chest: Denies dyspnea on exertion, productive cough, shortness of breath at rest or shortness of breath with exertion Gastrointestinal Gastrointestinal: Denies change in bowel habits, nausea, vomiting or weight changes Genitourinary Genitourinary: Denies difficulty urinating Musculoskeletal Musculoskeletal: Denies joint stiffness or muscle weakness Integumentary Integumentary: Denies lesions Neurologic Neurologic: Denies dizziness or syncope Psychiatric Psychiatric: Denies anxiety Endocrine Endocrinology: Denies excessive sweating or fatigue Hematologic/Lymphatic Hematologic/Lymphatic: Denies anemia Allergic/Immunologic Allergic/Immunologic: Denies seasonal rhinorrhea Physical Exam Const alert, oriented x3 and no apparent distress General Appearance: cooperative HEENT hearing grossly normal bilaterally Head and Scalp: atraumatic Eyes EOMs intact bilaterally Neck General: normal visual inspection Chest inspection of chest normal and palpation of chest normal Resp normal respiratory effort Auscultation: clear to auscultation bilaterally Cardio regular rate, regular rhythm, S1 normal heart sound and S2 normal heart sound Jugular Venous Distention: JVD GI normal to inspection, nondistended, normoactive bowel sounds Extremity normal capillary refill and no pedal edema Peripheral Pulses: Yes pulses 2+ throughout and femoral pulses present Skin no rashes or lesions noted Neuro oriented x3 and CN's II-XII intact bilaterally Psych Appearance: grossly normal and appropriate Risk Stratification Risk Stratification Applicable: Yes Age >/= 65: No >/= 3 CAD Risk Factors (HTN, HLD, DM, family hx of CAD, or current smoker): No Aspirin Use in the Past 7 Days: No Severe Angina (>/= episodes in 24 hours): Yes EKG ST Changes >/= 0.5mm: No Positive Cardiac Marker: Yes PORTILLO Risk Stratification Score: 2 PORTILLO % Risk: 8% Risk Objective Data Vital Signs: Vital Signs Temp Pulse Resp BP Pulse Ox O2 Del Method 97.4 F L 69 18 140/81 H 97 Room Air 12/07/23 05:28 12/07/23 10:45 12/07/23 10:45 12/07/23 10:45 12/07/23 10:45 12/07/23 10:45 Oxygen Delivery Method Room Air Weight: 245 lb 5.992 oz Body Mass Index (BMI) 34.2 Lab / Micro Data 12/07/23 00:15 12/07/23 00:15 Labs: Laboratory Results - last 24 hr 12/07/23 00:15: WBC 7.6, RBC 4.95, Hgb 14.9, Hct 45.2, MCV 91.3, MCH 30.1, MCHC 33.0, RDW Std Deviation 46.3 H, RDW Coeff of Lacey 13.8, Plt Count 156, MPV 10.8, Immature Gran % (Auto) 0.400, Neut % (Auto) 55.8, Lymph % (Auto) 31.8, [place] % (Auto) 8.5, Eos % (Auto) 3.0, Baso % (Auto) 0.5, Absolute Neuts (auto) 4.3, Absolute Lymphs (auto) 2.43, Nucleated RBC % 0, D-Dimer Quant (PE/DVT) 0.32, Sodium 140, Potassium 3.6, Chloride 106, Carbon Dioxide 27.0, Anion Gap 7, BUN 20 H, Creatinine 1.17, Estim Creat Clear Calc 82.19, Est GFR (MDRD) Af Amer 81, Est GFR (MDRD) Non-Af 67, BUN/Creatinine Ratio 17.1, Glucose 122 H, Calcium 9.3, Magnesium 2.2, Troponin I High Sens 55 12/07/23 02:14: Phosphorus 3.2, Troponin I High Sens 434 H* 12/07/23 03:42: PT 13.5, INR 1.0, APTT 28.7 12/07/23 06:10: Hemoglobin A1c 5.0, Troponin I High Sens 5148 H*, Triglycerides 107, Cholesterol 148, LDL Cholesterol 93, VLDL Cholesterol 21, HDL Cholesterol 34 L, TSH 2.67 Cardiology Labs/Tests 12/07/23 00:15: WBC 7.6, RBC 4.95, Hgb 14.9, Hct 45.2, MCV 91.3, MCH 30.1, MCHC 33.0, Plt Count 156, MPV 10.8, Immature Gran % (Auto) 0.400, Neut % (Auto) 55.8, Lymph % (Auto) 31.8, [place] % (Auto) 8.5, Eos % (Auto) 3.0, Baso % (Auto) 0.5, Absolute Neuts (auto) 4.3, Nucleated RBC % 0, D-Dimer Quant (PE/DVT) 0.32, So dium 140, Potassium 3.6, Chloride 106, Carbon Dioxide 27.0, Anion Gap 7, BUN 20 H, Creatinine 1.17, Est GFR (MDRD) Af Amer 81, Est GFR (MDRD) Non-Af 67, BUN/Creatinine Ratio 17.1, Glucose 122 H, Calcium 9.3, Magnesium 2.2 12/07/23 02:14: Phosphorus 3.2 12/07/23 03:42: PT 13.5, INR 1.0, APTT 28.7 12/07/23 06:10: Hemoglobin A1c 5.0, Triglycerides 107, Cholesterol 148, LDL Cholesterol 93, VLDL Cholesterol 21, HDL Cholesterol 34 L Rhythm: EKG: ECHO: Stress Test: Cardiac Cath: PCI: CT Surgery: Holter monitor: EPS: PPM: CXR: Chest CT Scan: Radiography Diagnostic Testing: Radiology Impression Chest X-Ray 12/07/23 00:33 IMPRESSION: No radiographic evidence of acute cardiopulmonary disease. Electronically Signed: Oli Washburn MD at 1:55 EDT ,
[2023-12-07] MEDS: Potassium Chloride Oral Tablet 20 MEQ 40 MEQ PO (13:03)
[2023-12-07] MEDS: Potassium Chloride 10mEq/100mL 10 MEQ/100 ML IV.SOLN. 100 MEQ IV BOLUS (13:57)
--- NOTE | 2023-12-07 16:37 | PCM.HOSP.N ---
Hospitalist Note Mr. Robbins is a 63-year-old white male who presented to the emergency department at [facility] early this morning on 12/07/2023 complaining of chest pain. He reported his symptoms started about 2 hours prior to his arrival with the abrupt onset of chest pain that began while he was getting ready for bed. He reported the chest pain was substernal and pressure-like with moderate radiation to the left arm. He indicated nothing was making his pain better or worse so he decided to finally come the emergency department for evaluation. He denied any associated fever, chills, nausea, vomiting or diaphoresis but does report a increased life stressors lately with impending detention. Vital signs on presentation showed temperature of 98.1, heart rate 97, respiratory rate was 12, blood pressure was 195/112 with a repeat at 201/109 and his pulse ox was 98% on room air. His CBC was unremarkable. His coags were normal. A D-dimer was negative. His chemistry panel was unremarkable. Serum glucose was 122 with a hemoglobin A1c of 5.0. His initial troponin was 434 with a repeat at 5148. We obtained a cholesterol panel that showed a total cholesterol 148, LDL 93, HDL 34, and triglycerides of 107. His TSH is 2.67. Chest x-ray was unremarkable. Interesting that he had a CT cardiac scoring for calcium done in 2020 and he had an elevated calcium score of 469.86. This is consistent with moderate elevation. He had no acute findings on EKG that were consistent with acute ischemia and he was admitted to the telemetry floor and cardiology was consulted. He was taken to the [facility] today at which time he was found to have triple-vessel disease but there did not appear to be any particular lesions which were amenable clinically to beneficial PCI and it was suspected that his culprit lesion was likely occlusion of the obtuse marginal branch of the circumflex artery. Recommendations were for medical management with aspirin, high intensity dose statin, improve blood pressure control to include a beta-tiffany and the patient will likely have a stress test in the next 3 months and if there is any inducible ischemia in the LAD distribution then a targeted PCI will be pursued at that time. He was on no antihypertensives prior to admission. We have added carvedilol 12.5 mg p.o. twice daily and losartan which was initially added daily but we have increased it to 50 mg twice daily. Likely discharge tomorrow as long as we can get his blood pressure under control. Plan was discussed with patient and family at the bedside.
[2023-12-07] MEDS: Acetaminophen 325 MG Tablet 650 MG PO ×2 (16:38→22:59)
[2023-12-07] MEDS: Carvedilol 12.5 MG Tablet PO (21:42)
[2023-12-07] MEDS: MELATONIN 3 MG TABLET PO (22:59)
[2023-12-08 05:00] VITALS: BP 131/73; PULSE 83; RESP 16; TEMP 36.9; O2SAT 98
[2023-12-08 07:34] VITALS: O2SAT 96
[2023-12-08 07:47] LABS: Hematocrit 43.6 % (40-54); Hemoglobin 14.5 g/dL (13.0-16.5); Mean Corp Hgb Conc 33.3 g/dL (32-36); Mean Corpuscular Hgb 30.3 pg (27.0-32.0); Mean Platelet Vol. 10.1 fl (6.2-12.0); Platelet Count 174 K/mm3 (150-450); RBC Distribution Width CV 13.7 % (11.6-14.6); RBC Distribution Width SD 45.8 fl (35.1-43.9); Red Blood Count 4.79 M/mm3 (4.6-6.2); White Blood Count 11.9 K/mm3 (4.4-11.0)
--- NOTE | 2023-12-08 08:29 | PN.CARD_ITS ---
Subjective Subjective Patient seen and evaluated. Appears to doing well. Objective Data Vital Signs: Vital Signs Temp Pulse Resp BP Pulse Ox O2 Del Method 98.5 F 83 16 131/73 H 98 Room Air 12/08/23 05:00 12/08/23 05:00 12/08/23 05:00 12/08/23 05:00 12/08/23 05:00 12/08/23 05:00 Oxygen Delivery Method Room Air Weight: 245 lb 5.992 oz Body Mass Index (BMI) 34.2 Intake & Output: Intake and Output for Last 24 Hours 12/06/23 12/07/23 12/08/23 23:59 23:59 23:59 Intake Total 502 / 752 850 / 850 Output Total 850 / 850 Balance 502 / 752 0 / 0 Lab / Micro Data 12/08/23 07:13 12/07/23 00:15 Labs: Laboratory Results - last 24 hr 12/07/23 06:10: Hemoglobin A1c 5.0 12/08/23 07:13: WBC 11.9 H, RBC 4.79, Hgb 14.5, Hct 43.6, MCV 91.0, MCH 30.3, MC HC 33.3, RDW Std Deviation 45.8 H, RDW Coeff of Lacey 13.7, Plt Count 174, MPV 10.1 Cardiology Labs/Tests 12/07/23 06:10: Hemoglobin A1c 5.0 12/08/23 07:13: WBC 11.9 H, RBC 4.79, Hgb 14.5, Hct 43.6, MCV 91.0, MCH 30.3, MCHC 33.3, Plt Count 174, MPV 10.1 Rhythm: EKG: ECHO: Stress Test: Cardiac Cath: PCI: CT Surgery: Holter monitor: EPS: PPM: CXR: Chest CT Scan: Radiography Diagnostic Testing: Radiology Impression Echocardiogram 12/07/23 05:24 Interpretation Summary Normal LV size. Left ventricular systolic function is normal. The estimated ejection fraction is 55 %. Structurally normal valves. Ordering Physician: Dariusz Butler Performed By: Tonio Lynn RCS Physical Exam Const alert, oriented x3 and no apparent distress General Appearance: cooperative HEENT hearing grossly normal bilaterally Head and Scalp: atraumatic Eyes EOMs intact bilaterally Neck General: normal visual inspection Chest inspection of chest normal and palpation of chest normal Resp normal respiratory effort Auscultation: clear to auscultation bilaterally Cardio regular rate, regular rhythm, S1 normal heart sound and S2 normal heart sound Jugular Venous Distention: JVD GI normal to inspection, nondistended, normoactive bowel sounds Extremity normal capillary refill and no pedal edema Peripheral Pulses: Yes pulses 2+ throughout and femoral pulses present Skin no rashes or lesions noted Neuro oriented x3 and CN's II-XII intact bilaterally Psych Appearance: grossly normal and appropriate Assessment & Plan Assessment/Plan (1) Non-ST elevated myocardial infarction (non-STEMI): PLAN: He presented with a non-ST elevation myocardial infarction and elevated high blood pressure. He was evaluated and underwent a cardiac catheterization today which demonstrated triple-vessel disease as reported in the formal report. They do not appear to be any particular lesions which may be amenable to clinically beneficial PCI. His culprit lesion was likely the occlusion of the obtuse marginal branch of the circumflex artery. * Recommendation will be as follows: Aspirin, High intensity statin. Beta-tiffany. Cardiac rehabilitation. Will recommend obtaining a stress test in approximately 3 months and if there is any ischemia in the LAD distribution then targeted PCI to this vessel will be undertaken. (2) Uncontrolled hypertension: PLAN: His blood pressure is much better today. He will continue on the beta-tiffany, losartan, Stable for discharge and outpatient management. Thank you for allowing me to participate in the care of your patient. Please don't hesitate to call if any issues arise.
[2023-12-08 08:52] LABS: ALB/GLOB Ratio 1.2 RATIO (0.9-2.4); AST(SGOT) 198 U/L (15-37); Alanine Aminotransfer ALT/SGPT 86 U/L (16-61); Albumin, Serum 3.8 g/dL (3.2-5.0); Alkaline Phosphatase 56 U/L (45-117); Anion Gap 6 (5-15); BUN 17 mg/dL (7-18); BUN/Creat Ratio 16.8 RATIO (10-20); Chloride 106 mmol/L (98-107); Creatinine, Serum 1.01 mg/dL (0.70-1.30); EST Glomerular Filtration Rate 79 mL/min (>60); Est Glom Filt Rate - Afr Amer 95 mL/min (>60); Estimated Creatinine Clearance 93.75 ml/min; Globulin 3.3 g/dL (2.2-4.2); Glucose 131 mg/dL (74-106); Potassium 4.3 mmol/L (3.5-5.1); Protein, Total 7.1 g/dL (6.4-8.2); Sodium Level 135 mmol/L (136-145)
[2023-12-08 09:54] VITALS: BP 133/86; PULSE 93; RESP 18; TEMP 36.9; O2SAT 98
[2023-12-08] MEDS: Carvedilol 12.5 MG Tablet PO (09:59)
[2023-12-08] MEDS: Magnesium Chloride 64 MG Delay Rel.Tablet 128 MG PO (09:59)
[2023-12-08] MEDS: Cholecalciferol (Vit D3) 125 MCG CAPSULE (5,000 UNITS) PO (09:59)
[2023-12-08] MEDS: Pantoprazole Sodium 40 MG Tablet PO (09:59)
[2023-12-08] MEDS: Aspirin E.C. 81 MG Tablet PO (10:00)
[2023-12-08] MEDS: Vitamin B Comp W-C Capsule 1 CAP PO (10:00)
[2023-12-08] MEDS: Losartan Potassium 50 MG Tablet PO (10:06)
--- NOTE | 2023-12-08 11:48 | PCM.DC.SUM ---
Providers Date of Admission: 12/07/23 Date of Discharge: 12/08/23 Primary Care Physician: Dr. Juan Carlos Cash MD Consultations 12/07/23 05:24 Consult: Cardiology Routine Consulting Provider: [facility] Reason for Consult: Chest Pain EMERGENT Consult: No MD Notified: Yes Date Notified: 12/07/23 Time Notified: 04:32 Method of Notification: ED Physician Initiated Method of Consult:: In-Person Reason For Visit: NON STEMI & UNCONTROLLED HYPERTENSION Diagnosis Discharge Diagnosis (1) Non-ST elevated myocardial infarction (non-STEMI): Status: Acute Code(s): I21.4 - Non-ST elevation (NSTEMI) myocardial infarction (2) Uncontrolled hypertension: Status: Acute Code(s): I10 - Essential (primary) hypertension Medications at Discharge Home Medications krill 1,000 mg-omega-3 230 mg-dha 60 cz-hsm-cjlqtttbg-astaxan capsule (MegaRed [place]-3 Krill Oil) 1 cap PO DAILY 07/15/21 omeprazole 40 mg capsule,delayed release 40 mg PO DAILY 07/15/21 tadalafil 5 mg tablet (Cialis) 5 mg PO DAILY PRN sexual activity 07/15/21 cholecalciferol (vitamin D3) 125 mcg (5,000 unit) capsule 125 mcg PO DAILY 07/17/21 magnesium oxide 500 mg PO DAILY 07/17/21 vitamin B complex 1 cap PO DAILY 07/17/21 vitamin K2 100 mcg capsule 100 mcg PO DAILY 07/17/21 aspirin 81 mg tablet,delayed release 81 mg PO BREAKFAST #0 tabs 12/08/23 atorvastatin 80 mg tablet 80 mg PO QHS #30 tabs 12/08/23 carvedilol 12.5 mg tablet 12.5 mg PO BID #60 tabs 12/08/23 losartan 50 mg tablet 50 mg PO BID #60 tabs 12/08/23 Hospital Course Operations None Procedures 2-D Echocardiogram, Cardiac catheterization, EKG and - (Chest x-ray) Summary of Care Provided Minutes Spent on Discharge: 37 Hospital Course: Mr. Robbins is a 63-year-old white male who presented to the emergency department at [facility] early this morning on 12/07/2023 complaining of chest pain. He reported his symptoms started about 2 hours prior to his arrival with the abrupt onset of chest pain that began while he was getting ready for bed. He reported the chest pain was substernal and pressure-like with moderate radiation to the left arm. He indicated nothing was making his pain better or worse so he decided to finally come the emergency department for evaluation. He denied any associated fever, chills, nausea, vomiting or diaphoresis but does report a increased life stressors lately with impending intermediate. Vital signs on presentation showed temperature of 98.1, heart rate 97, respiratory rate was 12, blood pressure was 195/112 with a repeat at 201/109 and his pulse ox was 98% on room air. His CBC was unremarkable. His coags were normal. A D-dimer was negative. His chemistry panel was unremarkable. Serum glucose was 122 with a hemoglobin A1c of 5.0. His initial troponin was 434 with a repeat at 5148. We obtained a cholesterol panel that showed a total cholesterol 148, LDL 93, HDL 34, and triglycerides of 107. His TSH is 2.67. Chest x-ray was unremarkable. Interesting that he had a CT cardiac scoring for calcium done in 2020 and he had an elevated calcium score of 469.86. This is consistent with moderate elevation. He had no acute findings on EKG that were consistent with acute ischemia and he was admitted to the telemetry floor and cardiology was consulted. He was taken to the Quality Analyst/Technical Writer today at which time he was found to have triple-vessel disease but there did not appear to be any particular lesions which were amenable clinically to beneficial PCI and it was suspected that his culprit lesion was likely occlusion of the obtuse marginal branch of the circumflex artery. Recommendations were for medical management with aspirin, high intensity dose statin, improve blood pressure control to include a beta-tiffany and the patient will likely have a stress test in 3 months and if there is any inducible ischemia in the LAD distribution and then if there is to proceed with targeted PCI. He was on no antihypertensives prior to admission. We have added carvedilol 12.5 mg p.o. twice daily and losartan 50 mg p.o. twice daily which has obtained much better control his blood pressure. We also added aspirin 81 mg daily, atorvastatin 80 mg daily for treatment of his ongoing coronary disease. The plan will be for him to follow-up with cardiology and this appointment has been made. I also advised him to follow-up with his primary care physician within the next 7 to 10 days for posthospital follow-up. Goal blood pressure will be 130/80 and he may need some up titration of medicine versus addition of new medication depending on response over time. We did also obtain an echocardiogram on 12/07/2023 that showed an EF of 55% with structurally normal valves and normal LV function. Patient was able to be discharged home in stable condition 12/08/2023 with prescriptions for his new medication sent to local pharmacy prior to discharge. Discharge diagnoses: NSTEMI Coronary artery disease Uncontrolled hypertension Hyperlipidemia Obesity History of tobacco abuse GERD Erectile dysfunction Physical Exam Const alert, oriented x3, no apparent distress, no limitations and well nourished Constitutional Narrative: Obese, upper middle-aged, white male, sitting up in bed watching television, appears comfortable and nontoxic General Appearance: cooperative, comfortable, well kempt and well developed Orientation / Consciousness: awake, oriented to person, oriented to place and oriented to time Exam Limitations: no limitations Nutritional Appearance: obese HEENT normocephalic, head/scalp atraumatic, hearing grossly normal bilaterally and moist oral mucous membranes HEENT Narrative: Dentition is fair for age, Mallampati is 2, no thrush Eyes PERRL, EOMs intact bilaterally and conjunctivae normal Eyes Narrative: No scleral icterus Neck no lymphadenopathy and supple Neck Narrative: Trachea midline, no thyroid enlargement Resp normal respiratory effort, no retractions, no use of accessory muscles and clear to auscultation bilaterally Auscultation: Negative for rales, rhonchi or wheezes Cardio regular rate, regular rhythm, S1 normal heart sound, S2 normal heart sound, no murmurs, no rub, no gallops and no clicks GI normal to inspection, nondistended, normoactive bowel sounds, soft to palpation and non-tender Extremity no clubbing, cyanosis or edema Extremity Narrative: Radial pulses are 2+ bilaterally, pedal pulses are 2+ bilaterally Skin no rashes or lesions noted, no wounds, skin turgor normal and no jaundice Skin Narrative: Post cath site and right wrist with dressing intact and is clean and dry, no signs of tenderness or ecchymosis Neuro oriented x3, CN's II-XII intact bilaterally, moves all extremities and no focal motor deficits Speech: speech normal Psych affect normal Psych Narrative: Very pleasant, interacts appropriately Weight / BMI Weight Weight: 111.3 kg Body Mass Index (BMI) 34.2 ABG / Lab / Microbiology Data 12/08/23 07:13 12/08/23 07:13 Laboratory: Laboratory Results - last 24 hr 12/08/23 07:13: WBC 11.9 H, RBC 4.79, Hgb 14.5, Hct 43.6, MCV 91.0, MCH 30.3, MCHC 33.3, RDW Std Deviation 45.8 H, RDW Coeff of Lacey 13.7, Plt Count 174, MPV 10.1, Sodium 135 L, Potassium 4.3, Chloride 106, Carbon Dioxide 23.0, Anion Gap 6, BUN 17, Creatinine 1.01, Estim Creat Clear Calc 93.75, Est GFR (MDRD) Af Amer 95, Est GFR (MDRD) Non-Af 79, BUN/Creatinine Ratio 16.8, Glucose 131 H, Calcium 9.0, Total Bilirubin 1.40 H, AST 198 H, ALT 86 H, Alkaline Phosphatase 56, Total Protein 7.1, Albumin 3.8, Globulin 3.3, Albumin/Globulin Ratio 1.2 Radiography Diagnostic Testing: Radiology Impression Echocardiogram 12/07/23 05:24 Interpretation Summary Normal LV size. Left ventricular systolic function is normal. The estimated ejection fraction is 55 %. Structurally normal valves. Ordering Physician: Dariusz Butler Performed By: Tonio Lynn RCS D/C Instructions Discharge Diet: Low fat / Low cholesterol Discharge Activity: Return to Normal Activity Return to work on: 12/19/23 Meaningful Use Info Meaningful Use Meaningful Use Diagnoses (Choose all that apply): None applicable Ischemic Stroke Statin Dosing Therapy Reference: STATIN DOSE THERAPY REFERENCE: * Patients > 75 years receive moderate or high dose statin therapy. * Patients 75 years or YOUNGER should receive HIGH intensity statin dose unless contraindicated. You will be required to document reason for non-treatment if statin daily dose does not meet guidelines. HIGH DOSE STATIN THERAPY DAILY Atorvastatin > than or = to 40 mg Rosuvastatin > than or = to 20 mg Amlodipine + Atorvastatin > than or = to 2.5/40 mg Ezetimibe + Simvastatin 10/80 mg Simvastatin 80mg Discharge Plan Admission Admit Date/Time: 12/07/23 04:31 Primary Reason for Your Visit: Chest Pain Attending Provider: Martha Balderas Primary Care Provider: Juan Carlos Cash Consulting Providers: Itzel Marshall; Golden Saenz; Do Barrett; Price Travis; Alexander Kumar; Miles Jeong; Sanket Marquez; Nilo Tam; Blessing Galvez; Ammon Go; Santosh Tidwell SR RISK MANAGEMENT CONSULTANT; Itzel Marshall NP; Patsy Raines; Dariusz Butler Discharge Orders/Prescriptions Prescriptions: New losartan 50 mg Tablet 50 mg PO BID Qty: 60 1RF carvedilol 12.5 mg Tablet 12.5 mg PO BID Qty: 60 1RF atorvastatin 80 mg Tablet 80 mg PO QHS Qty: 30 1RF aspirin 81 mg Tablet,Delayed Release (Dr/Ec) 81 mg PO BREAKFAST Qty: 0 0RF Continued vitamin K2 100 mcg capsule 100 mcg PO DAILY cholecalciferol (vitamin D3) 125 mcg (5,000 unit) capsule 125 mcg PO DAILY vitamin B complex Capsule 1 cap PO DAILY magnesium oxide 500 mg tablet 500 mg PO DAILY [id number]-uw-[id number]-cqu-tsa-mrbsaus-ast [MegaRed [place]-3 Krill Oil] 1,000-230-60 mg capsule 1 cap PO DAILY omeprazole 40 mg capsule,delayed release(DR/EC) 40 mg PO DAILY tadalafil [Cialis] 5 mg tablet 5 mg PO DAILY PRN (Reason: sexual activity) Referrals / Follow Up: Juan Carlos Cash MD [Primary Care Provider] - Within 2 Weeks Santosh Tidwell NP, SR RISK MANAGEMENT CONSULTANT-C [Med Staff - [facility] Practice Prof] - 12/27/23 11:00 am Disposition Disposition (needs filled in before D/C Order can be placed): Home, Self Care Charges/Coding Visit Charges Inpatient E&M: 91753 Disch Hosp >30min
--- NOTE | 2023-12-08 12:36 | CM.UR ---
RN STANLEY NOTE: Pt being discharged. RN CM to room. Pt sitting up in chair in room. Pt denies having any discharge needs/concerns. Mauricio BSN DIANA CM
[2023-12-08 14:31] VITALS: BP 113/72; PULSE 99; RESP 18; TEMP 37.1; O2SAT 98
--- NOTE | 2023-12-08 15:10 | PHA.DC.MC.R ---
Pharmacy [facility] Pharmacy Service has performed discharge medication reconciliation and counseling for this patient. 1. ASPIRIN 81MG PO DAILY 2. ATORVASTATIN 80MG PO QHS 3. CARVEDILOL 12.5MG PO BID 4. LOSARTAN 50MG PO BID The patient's discharge medication list was reviewed for discrepancies and discrepancies were resolved. The patient was counseled on the following discharge medications and changes in medications for homegoing were reviewed. The Reason for Use, instructions for use, and potential side effects were reviewed for all new medications. The patient's questions regarding all of their medications were answered. The patient was able to verbally demonstrate an understanding of their discharge medications. Medications at Discharge Home Medications krill 1,000 mg-omega-3 230 mg-dha 60 wg-usb-gvczmgugt-astaxan capsule (MegaRed [place]-3 Krill Oil) 1 cap PO DAILY 07/15/21 omeprazole 40 mg capsule,delayed release 40 mg PO DAILY 07/15/21 tadalafil 5 mg tablet (Cialis) 5 mg PO DAILY PRN sexual activity 07/15/21 cholecalciferol (vitamin D3) 125 mcg (5,000 unit) capsule 125 mcg PO DAILY 07/17/21 magnesium oxide 500 mg PO DAILY 07/17/21 vitamin B complex 1 cap PO DAILY 07/17/21 vitamin K2 100 mcg capsule 100 mcg PO DAILY 07/17/21 aspirin 81 mg tablet,delayed release 81 mg PO BREAKFAST #0 tabs 12/08/23 atorvastatin 80 mg tablet 80 mg PO QHS #30 tabs 12/08/23 carvedilol 12.5 mg tablet 12.5 mg PO BID #60 tabs 12/08/23 losartan 50 mg tablet 50 mg PO BID #60 tabs 12/08/23
--- NOTE | 2023-12-12 08:50 | CL.D_ITS ---
Patient Name: AMBER SOTO Study Date: 12/07/2023 Performing: Alexander Kumar MD Ht: 71 inches 180.34 cm : 1960 Wt: 245.7 lbs 111.3 kg Age: 63 Gender: male BSA: 2.3 PROCEDURE(S) PERFORMED [id number]-([id number])LHC/COR/LV CLINICAL PROFILE AND INDICATIONS Indications: ACS <= 24 hrs Heart Failure: None Stress/Imaging Stress/Image Study Performed: No CAD Presentations: Non-STEMI. Symptom onset Date/Time: 12/07/23 Time Not Available CONCLUSIONS Moderate diffuse coronary disease involving the mid to distal LAD culprit lesion which is an obtuse marginal branch and diffuse right coronary artery disease. RECOMMENDATIONS Medical therapy DESCRIPTION OF PROCEDURE The patient arrived to the procedure lab. The risks and benefits of the procedure as well as a full description of our services here and current unavailability of surgical backup were fully explained to the patient and/or their significant other prior to the catheterization. The Timeout was completed, verifying the correct patient and procedure. The patient's procedural site was prepped and draped in the usual fashion. Local anesthetic was given subcutaneously to right radial region with Lidocaine 2%. Using a modified Seldinger technique, arterial access was obtained via the right radial artery, a 6Fr sheath was inserted. Left Coronary Artery selective angiography was performed in multiple views using a 5 Fr. 4.0 [place] catheter. Right Coronary Artery selective angiography was then performed in multiple views using a 5 Fr. JR 5 catheter. Left Ventriculography was performed in WRIGHT projection using a 5 Fr. Pigtail catheter. LV to AO pullback pressures were then recorded.The arterial sheath was pulled and a TR Band was applied for hemostasis CORONARY ANGIOGRAPHY DOMINANCE: Right Dominant LEFT HEART ASSESSMENT Left Ventricular Ejection Fraction: by LV Gram 50 % Normal LV wall motion Normal Left Ventricular systolic function LEFT MAIN: Angiographically normal LEFT ANTERIOR DESCENDING ARTERY: Left anterior descending artery has distal 70% stenotic lesion. A bifurcating diagonal vessel has 2 small branches with 80% stenosis. CIRCUMFLEX ARTERY: Nondominant vessel with first obtuse marginal branch which is totally occluded. The rest of the vessel appears to have mild diffuse disease. RIGHT CORONARY ARTERY: Dominant vessel with mild to moderate mid segment disease and a bifurcating 70% stenosis of the posterior descending artery and posterolateral vessel. The posterior descending artery itself has a 50% mid stenosis noted COMPLICATIONS No Complications PROCEDURE MEDICATIONS Versed 1 mg IV Fentanyl 50 mcg IV Versed 1 mg IV Oxygen: 2 L/min via nasal cannula Heparin given IA 12/07/2023 09:45:07 Verapamil 2.5mg, Ntg 100mcgs, 3000 units of Heparin given IA 12/07/2023 09:45:07 SUMMARY OF HEMODYNAMIC DATA Time AIR REST ECG 09:19:56 Art 177/97 (125) 09:36:36 AO 128/84 (108) SA 09:45:40 LV 122/15, 22 09:58:23 LV 127/17, 26 09:58:32 LV 128/17, 26 09:59:14 LVp 126/16, 28 09:59:20 AOp 122/81 (102) 09:59:27 Signed By Alexander Kumar MD On 12/12/2023 08:49:10 Alexander Kumar MD
== END 2023-12-08 15:01 | disposition home or self-care (01) | DRG 282 ==
LOC: ED 04:18 → PCU 04:50
PROVIDERS: Admitting Provider Internal Medicine; Emergency Provider Emergency Medicine; PCP Family Medicine; Visit Provider Internal Medicine
DX: I21.4 Non-ST elevation (NSTEMI) myocardial infarction (principal); E66.9 Obesity, unspecified; I10 Essential (primary) hypertension; I25.10 Atherosclerotic heart disease of native coronary artery without angina pectoris; M19.90 Unspecified osteoarthritis, unspecified site; K21.9 Gastro-esophageal reflux disease without esophagitis; G56.00 Carpal tunnel syndrome, unspecified upper limb; E78.5 Hyperlipidemia, unspecified; Z87.891 Personal history of nicotine dependence; N52.9 Male erectile dysfunction, unspecified; Z68.35 Body mass index [BMI] 35.0-35.9, adult; Z79.899 Other long term (current) drug therapy
CPT/HCPCS: 36415; 71046; 80048; 80053; 80061; 83036; 83735; 84100; 84443; 84484; 85025; 85027; 85379; 85610; 85730; 93005; 93306; 93458; 99152; 99153; 99284; 99406; J7040; Q9957; Q9967; A4216; C1769; C1894

== ENCOUNTER → 2024-03-01 | Outpatient (CLI) | payer BC, SELFPAY ==
--- NOTE | 2024-03-01 12:24 | STRESSREP_ITS ---
Stress Test Report exercise myocardial perfusion stress test. 64-year-old man with a history of coronary disease Stress protocol: Resting EKG demonstrates normal sinus rhythm with a rate of 75 bpm resting blood pressure is 138/98 mmHg. The patient exercised according to the regular Ja protocol for a total duration of 7 minutes and 30 seconds attaining a maximum heart rate of 157 bpm which was 101% of maximum predicted heart rate; the maximum workload was 10.1 metabolic equivalents. At rest there were no ST or T wave changes noted to suggest ischemia and at peak exercise upsloping ST changes only were noted which did not meet the criteria for ischemia. No clinical angina was noted the test was terminated due to the target heart rate being achieved/fatigue. The peak blood pressure was 190/90 mmHg. Rate-pressure product was 20,400. Myocardial perfusion protocol. 14.6 mCi of technetium 99m sestamibi was injected at rest. The patient exercise d according to regular Ja protocol for total duration of 7 minutes and 32nd and at peak exercise 44.3 mCi of technetium 99m sestamibi was injected stress images were obtained stress and rest images were reconstructed in comparing the short axis vertical long and horizontal long axis. Gated images were also obtained. Perfusion SPECT analysis: Review of the stress images demonstrate normal uptake of tracer noted in all areas of the myocardium but to the inferior wall has significantly reduced perfusion from the base to the apex. There is also a fair amount of motion artifact noted and this could be confounding. The resting images similarly demonstrate normal uptake of tracer noted in all areas of the myocardium with a defect noted in the inferior wall as well. Gated SPECT analysis: The gated ejection fraction is 61%. Conclusion: Normal exercise myocardial perfusion stress test at a high workload Preserved ejection fraction. Inferior wall ischemia or infarct cannot be completely excluded
== END | disposition home or self-care (01) ==
PROVIDERS: PCP Family Medicine; Referring Provider Nurse Practitioner Gerontology; Visit Provider Nurse Practitioner Gerontology
DX: I25.10 Atherosclerotic heart disease of native coronary artery without angina pectoris (principal)
CPT/HCPCS: 78452; 93017; A9500; A4216

== ENCOUNTER → 2024-03-20 | Outpatient (CLI) | payer BC, SELFPAY ==
[2024-03-20 10:42] LABS: Absolute Lymphocyte Count 1.46 X10^3/uL (0.83-4.51); Absolute Neutrophil Count 3.7 X10^3/uL (2.0-7.7); Basophil# 0.04 X10^3/uL; Basophil% 0.7 % (0-1); Eosinophil# 0.25 X10^3/uL; Eosinophils% 4.2 % (0-5); Hematocrit 40.2 % (40-54); Hemoglobin 13.7 g/dL (13.0-16.5); Lymphocyte # 1.46 X10^3/ul (0.83-4.51); Lymphocyte % 24.6 % (19-41); Mean Corp Hgb Conc 34.1 g/dL (32-36); Mean Corpuscular Hgb 31.9 pg (27.0-32.0); Mean Corpuscular Volume 93.5 fL (80-94); Mean Platelet Vol. 10.4 fl (6.2-12.0); Monocyte# 0.48 X10^3/uL; Monocyte% 8.1 % (0-10); NRBC Flagged by Analyzer 0 % (0-5); Neutrophil # 3.69 X10^3/uL (2.7-7.7); Neutrophil % 62.1 % (47-70); Platelet Count 155 K/mm3 (150-450); RBC Distribution Width CV 13.3 % (11.6-14.6); RBC Distribution Width SD 45.6 fl (35.1-43.9); White Blood Count 5.9 K/mm3 (4.4-11.0)
[2024-03-20 11:01] LABS: BNP,B-Type NATRIURETIC PEPTIDE 41.3 pg/mL (0-100)
[2024-03-20 11:30] LABS: AST(SGOT) 62 U/L (15-37); Alanine Aminotransfer ALT/SGPT 59 U/L (16-61); Alkaline Phosphatase 62 U/L (45-117); Anion Gap 5 (5-15); BUN 18 mg/dL (7-18); BUN/Creat Ratio 16.4 RATIO (10-20); Bilirubin, Direct 0.16 mg/dL (0.00-0.30); Chloride 106 mmol/L (98-107); Cholesterol 153 mg/dL (200); EST Glomerular Filtration Rate 71 mL/min (>60); Est Glom Filt Rate - Afr Amer 86 mL/min (>60); Globulin 3.6 g/dL (2.2-4.2); Glucose 107 mg/dL (74-106); High Density Lipoprotein 37 mg/dL; Potassium 4.4 mmol/L (3.5-5.1); Protein, Total 7.6 g/dL (6.4-8.2); Sodium Level 137 mmol/L (136-145); Triglycerides 168 mg/dL; Very Low Density Lipoprotein 34 mg/dL (5-40)
== END | disposition home or self-care (01) ==
PROVIDERS: PCP Family Medicine; Referring Provider Nurse Practitioner Gerontology; Visit Provider Nurse Practitioner Gerontology
DX: I25.10 Atherosclerotic heart disease of native coronary artery without angina pectoris (principal); R06.09 Other forms of dyspnea
CPT/HCPCS: 36415; 80048; 80061; 80076; 83880; 85025

== ENCOUNTER → 2025-03-21 | Outpatient (CLI) | payer BC, SELFPAY ==
[2025-03-21 10:43] LABS: AST(SGOT) 40 U/L (<=37); Alanine Aminotransfer ALT/SGPT 41 U/L (<=46); Albumin, Serum 4.6 g/dL (3.4-4.8); Alkaline Phosphatase 60 U/L (40-129); Bilirubin, Direct 0.33 mg/dL (0.00-0.30); Cholesterol 141 mg/dL (<=200); Globulin 2.7 g/dL (2.2-4.2); Low Density Lipoprotein Calc. 83 mg/dL; Triglycerides 86 mg/dL; Very Low Density Lipoprotein 17 mg/dL (5-40); cholesterol:hdl ratio screen 3.43
== END | disposition home or self-care (01) ==
PROVIDERS: PCP Family Medicine; Referring Provider Nurse Practitioner Gerontology; Visit Provider Nurse Practitioner Gerontology
DX: I25.10 Atherosclerotic heart disease of native coronary artery without angina pectoris (principal)
CPT/HCPCS: 36415; 80061; 80076